=== PATIENT | male | born 1995 | race Caucasian/White ===

== ENCOUNTER 2018-12-14 15:33 | Emergency (ER) | payer OTHER ==
[~2018-12-14] VITALS: Ht 170.1 cm; Wt 54.4 kg
[2018-12-14] MEDS ORDERED: AMOXICILLIN500 M2 PO (16:05)
[2018-12-14] MEDS ORDERED: CORTISPORIN SUS10 ML OT (16:05)
== END 2018-12-14 16:13 | disposition home or self-care (01) ==
LOC: ED 15:33
DX: H60.92 Unspecified otitis externa, left ear (principal); H66.42 Suppurative otitis media, unspecified, left ear